=== PATIENT | female | born 1950 | race Caucasian/White ===

== ENCOUNTER → 2022-07-09 09:59 | Outpatient (REF) | payer MEDICARE, SELFPAY ==
--- NOTE | 2022-07-09 10:06 | CA_ITS ---
Transthoracic Echocardiogram Patient (Last, First, Middle): Deanna Hunt, Gender: Female Date of : 1950 Age: 72 Procedure Date: 07/09/2022 Procedure Type: Transthoracic Echocardiogram Location: OP Height: 177.8 cm Weight: 86.18 kg BSA: 2.04 m2 Heart Rate: bpm BP: 128 / 70 mmHg Multi Slide Machine Tender: KELVIN Referring MD: Rodrigue Almonte MD Symptoms: MILLS R06.09 Study Quality: Adequate ECG Rhythm: Sinus Conclusions: - The left ventricular systolic function is low normal. The visually estimated ejection fraction is between 50-55%. - No obvious valvular pathology seen on this study. Findings Left Ventricle Normal left ventricular cavity size. There is normal left ventricular wall thickness. The left ventricular systolic function is low normal. The visually estimated ejection fraction is between 50-55%. E/E prime ratio is between 8 and 15 consistent with indeterminate filling pressures. Evidence suggests grade I (mild) diastolic dysfunction. Strain measurement probably not reliable. Right Ventricle Normal right ventricular cavity size and systolic function. Atria Both atria are normal in size. Aortic Valve There is a normal trileaflet aortic valve. There is no aortic valve stenosis. There is no aortic valve regurgitation. Mitral Valve The mitral valve appears normal. There is trace mitral valve regurgitation. There is no mitral valve stenosis. Pulmonic Valve There is trace pulmonic valve regurgitation. Tricuspid Valve There is mild tricuspid valve regurgitation. There is no evidence of pulmonary hypertension. Great Vessels The asc aorta is normal in size. Venous The inferior vena cava is normal in size and collapses greater than 50% with inspiration. Pericardium/Pleural There is no evidence of pericardial effusion. Prior Study Comparison No prior study available for comparison. Recommendations, Care & Conclusions No obvious valvular pathology seen on this study. Measurements 2D Linear Measurements IVSd: 0.92 0.6-0.9/0.6-1.0 cm LVIDd: 5.04 3.9-5.3/4.2-5.9 cm LVIDd Index: 2.47 2.4-3.2/2.2-3.1 cm/m2 LVIDs: 3.43 2.0-3.6 cm LVPWd: 0.94 0.7-1.1 cm LA Diam: 3.60 2.7-3.8/3.0-4.0 cm LAIDs Index: 1.76 1.5-2.3 cm/m2 LV Mass: 208.80 67-162/88-224 g LV Mass Index: 102.35 43-95/49-115 g/m2 LVOT Diam: 2.00 3.0+(-)1.3 cm 2D Systolic Function EF 4C: 45.60 >55% EF 2C: 58.90 >55% EF BiP: 51.10 >55% Mitral Valve MV Pk E: 0.78 MV PK A: 0.68 MV Decel Time: 162.00 E/A: 1.10 E'Lateral: 5.77 E'Medial: 5.66 E/E' Med: 13.70 E/E' Lat: 13.40 PHT: 47.00 MVA PHT: 4.68 Decel [place]: 4.79 Aortic Valve AoV Pk Eladio: 1.33 AoV Mn Eladio: 0.98 AoV VTI: 0.31 AoV Pk Grad: 7.00 Aov Mn Grad: 4.00 CINDI Cont.VTI: 2.67 LVOT LVOT Pk Eladio: 1.13 LVOT Mn Eladio: 0.77 LVOT VTI: 0.27 LVOT Pk Grad: 5.00 LVOT Mn Grad: 3.00 LVOT Diam: 2.00 LVOT Area: 3.14 Diastolic Function MV Pk E: 0.78 MV Pk A: 0.68 E/A: 1.10 E'Medial: 5.66 E/E' Med: 13.70 E' Laterial: 5.77 E/E' Lat: 13.40 Right Ventricle TAPSE (mm): 32.30 TVS' Eladio: 17.00 Tricuspid Valve TR Pk Eladio: 2.65 TR Pk Grad: 28.00 RA Press: 3.00 RVSP: 31.00 Great Vessels Aorta Sinus of Valsalva: 3.49 2.0-3.5 cm Ao Asc: 3.00 2.1-3.4 cm Updated in Other Vendor System with Status of Final Guillermo Fleming MD electronically signed on 07/09/2022 12:44:42 PM with status of Final
== END ==
LOC: HO.CARD 09:59
PROVIDERS: Visit Provider Internal Medicine Pulmonary Disease
DX: R06.09 Other forms of dyspnea (principal)
CPT/HCPCS: 93306